=== PATIENT | male | born 1945 | race Caucasian/White ===

== ENCOUNTER 2018-02-14 01:44 | Outpatient (CLI) | payer MEDICARE, OTHER, SELFPAY ==
[2018-02-14 11:46] LABS: Hemoglobin A1C 6.9 % (4.5-6.2)
== END 2018-02-14 02:04 ==
PROVIDERS: PCP Family Medicine; Visit Provider Family Medicine
DX: E11.9 Type 2 diabetes mellitus without complications (principal)
CPT/HCPCS: 36415; 83036

== ENCOUNTER 2018-12-02 02:44 | Outpatient (CLI) | payer MEDICARE, OTHER, SELFPAY ==
[2018-12-02 10:24] LABS: Anion Gap 9.4 mmol/L (3-11); BUN 12 mg/dL (7-18); CO2 28.6 mmol/L (21.0-32.0); CREATININE 0.88 mg/dL (0.70-1.30); Calcium 8.5 mg/dL (8.5-10.1); Calculated LDL 94 mg/dL; Chloride 104 mmol/L (98-107); Cholesterol 167 mg/dL (50-200); Glucose 140 mg/dL (70-100); HDL Cholesterol 38 mg/dL (40-60); Potassium 4.6 mmol/L (3.5-5.1); Sodium 142 mmol/L (136-145); Triglyceride 178 mg/dL (30-150)
[2018-12-04 09:04] LABS: Hemoglobin A1C 7.2 % (4.5-6.2)
== END 2018-12-02 03:04 ==
PROVIDERS: PCP Family Medicine; Visit Provider Family Medicine
DX: E11.9 Type 2 diabetes mellitus without complications (principal); I10 Essential (primary) hypertension
CPT/HCPCS: 36415; 80048; 80061; 83721; 83036

== ENCOUNTER 2021-01-07 02:38 | Outpatient (CLI) | payer MEDICARE, OTHER, SELFPAY ==
[2021-01-07 12:37] LABS: Calculated LDL 65 mg/dL (<100); Cholesterol 113 mg/dL (<200); HDL Cholesterol 30 mg/dL (40-60); Triglyceride 93 mg/dL (<150)
== END 2021-01-07 02:39 | disposition home or self-care (01) ==
LOC: LOS 02:38
PROVIDERS: PCP Nurse Practitioner Family; Visit Provider Nurse Practitioner Family
DX: I25.10 Atherosclerotic heart disease of native coronary artery without angina pectoris (principal)
CPT/HCPCS: 36415; 80061

== ENCOUNTER 2021-01-15 02:47 | Outpatient (CLI) | payer MEDICARE, OTHER, SELFPAY ==
[2021-01-15 12:19] LABS: HCT 40.9 % (40.0-50.0); HGB 12.9 g/dL (13.5-17.5); MCH 28.4 pg (27.0-33.0); MCHC 31.5 % (32.0-36.0); MCV 89.9 fL (80-95); MPV 9.4 fL (8.0-11.0); Platelet Count 571 10^3/uL (130-400); RBC 4.55 10^6/uL (4.36-5.78); RDW 12.1 % (11.8-14.1); RDW-SD 39.8 fL; WBC 14.38 10^3/uL (4.4-10.8)
[2021-01-15 12:38] LABS: TSH 1.88 uIU/mL (0.36-3.74)
[2021-01-16 09:29] LABS: Lyme Ab w Rflx to Lyme Confirm Negative (Negative)
[2021-01-19 18:06] LABS: Anaplasma phagocytophilum Negative (Negative); B. miyamotoi PCR Negative (Negative); Babesia divergens/MO-1 Negative (Negative); Babesia duncani Negative (Negative); Babesia microti Negative (Negative); Ehrlichia chaffeensis Negative (Negative); Ehrlichia ewingii/canis Negative (Negative); Ehrlichia muris eauclairensis Negative (Negative)
== END 2021-01-15 02:48 | disposition home or self-care (01) ==
LOC: LOS 02:48
PROVIDERS: PCP Nurse Practitioner Family; Visit Provider Nurse Practitioner Family
DX: E11.9 Type 2 diabetes mellitus without complications (principal); I25.10 Atherosclerotic heart disease of native coronary artery without angina pectoris; W57.XXXA Bitten or stung by nonvenomous insect and other nonvenomous arthropods, initial encounter; T14.8XXA Other injury of unspecified body region, initial encounter
CPT/HCPCS: 36415; 85027; 87798; 84443; 86618

== ENCOUNTER 2021-01-22 02:50 | Outpatient (CLI) | payer MEDICARE, OTHER, SELFPAY ==
[2021-01-22 12:39] LABS: HCT 40.2 % (40.0-50.0); HGB 12.3 g/dL (13.5-17.5); MCH 27.7 pg (27.0-33.0); MCHC 30.6 % (32.0-36.0); MCV 90.5 fL (80-95); MPV 9.6 fL (8.0-11.0); Platelet Count 503 10^3/uL (130-400); RBC 4.44 10^6/uL (4.36-5.78); RDW 12.4 % (11.8-14.1); RDW-SD 41.1 fL; WBC 11.21 10^3/uL (4.4-10.8)
== END 2021-01-22 02:51 | disposition home or self-care (01) ==
LOC: LOS 02:50
PROVIDERS: PCP Nurse Practitioner Family; Visit Provider Nurse Practitioner Family
DX: R53.83 Other fatigue (principal)
CPT/HCPCS: 36415; 85027

== ENCOUNTER 2021-12-23 02:39 | Outpatient (CLI) | payer MEDICARE, OTHER, SELFPAY ==
[2021-12-23 13:26] LABS: Hemoglobin A1C 6.5 % (<5.7)
== END 2021-12-23 02:40 | disposition home or self-care (01) ==
LOC: LOS 02:39
PROVIDERS: PCP Nurse Practitioner Family; Visit Provider Nurse Practitioner Family
DX: E11.9 Type 2 diabetes mellitus without complications (principal); I10 Essential (primary) hypertension
CPT/HCPCS: 36415; 82565; 83036

== ENCOUNTER → 2023-11-28 10:43 | Outpatient (CLI) | payer MEDICARE, OTHER, SELFPAY ==
--- NOTE | 2023-11-28 09:09 | DI.RAD_ITS ---
Exam(s) XR HIP LT COMPLETE AP PELVIS XR FEMUR LT EXAM: XR HIP LT COMPLETE AP PELVIS and XR femur LT CLINICAL HISTORY: Continued pain after fall, W19.XXXA. TECHNIQUE: 2D digital imaging was performed of the left femur and hip. Five views were obtained. A P pelvis and lateral left hip and AP and lateral femur views were obtained. COMPARISON: No priors for comparison. FINDINGS: BONES: No acute fracture is present. No bony destructive lesion is seen. There is bony fusion across the symphysis pubis. There are enthesophytes at the anterior patella. JOINTS: No dislocation present. There are prominent osteophytes of the superior acetabuli bilaterally . There are degenerative changes seen in the lower visualized lumbar spine. SOFT TISSUE: Vascular calcifications are present. IMPRESSION: No evidence of an acute or healing fracture or dislocation. DATA REPOSITORY: RADIATION DOSE DELIVERED:
== END ==
PROVIDERS: PCP Nurse Practitioner Family; Visit Provider Nurse Practitioner Family
DX: W19.XXXA Unspecified fall, initial encounter (principal); M79.605 Pain in left leg
CPT/HCPCS: 73552; 73502